=== PATIENT | male | born 1955 | race Caucasian/White ===

== ENCOUNTER → 2019-01-12 11:12 | Outpatient (CLI) | payer OTHER, SELFPAY ==
--- NOTE | 2019-01-12 11:23 | CT_ITS ---
PROCEDURE: CT ABDOMEN PELVIS WO/W CON CLINICAL INDICATION: PANCREATIC CANCER, ACUTE CHOLANGITIS Pancreatic cancer, acute cholangitis, abdominal distension COMPARISON: ERCP [place] ERCP from 07/30/2018 [facility] US abdomen complete from 07/30/2018 TECHNIQUE: IV Contrast: 75ML OPTIRAY 350 Oral Contrast 450ml Redicat Axial images obtained with sagittal and coronal reformats. All CT scans at the facility use one or more dose reduction, viz: automated exposure control, ma/kV adjustment per patient size (including targeted exams where dose is matched to indication, i.e. head), or iterative reconstruction technique. FINDINGS: Lower thorax: A 4 mm nodules present in the right middle lobe laterally and may be due to a granuloma. The liver is somewhat shrunken with irregular margins consistent with cirrhosis. A hyperdense nodules present in the right hepatic lobe anteriorly at 12 mm with at least 3 additional hyperdense smaller nodules in the right hepatic lobe. These are nonspecific. There is diffuse heterogeneous decreased attenuation within the liver mostly centrally and may be due to heterogeneous fatty liver infiltration. Cannot exclude the possibility of metastatic disease however this does not appear to be displacing vessels or bile ducts. A biliary stent is present. No biliary dilatation. Pneumobilia is present. A gallstone is also noted. There is a focal well-defined linear lucency through the posterior aspect of the spleen and may represent a fissure within the spleen. A laceration could have a similar appearance. Please correlate with clinical parameters. The adrenal glands are unremarkable. There are bilateral renal cyst. There is a 5 mm nonobstructing stone in the upper pole of the right kidney. No ureteral calculi. No hydronephrosis. There is moderate diffuse ascites. Soft tissue mass is present in the head of the pancreas at 3.6 by 4.2 cm. There is mild ductal dilatation of the body and tail the pancreas. Moderate amount of ascites is present in the pelvis. No intestinal obstruction or free air is evident. There is haziness of the peritoneal fat which may be related to the underlying ascites. No acute bony anomalies are evident. IMPRESSION: 1. 4 cm mass in the head of the pancreas consistent with pancreatic carcinoma 2. Cirrhosis with heterogeneous decreased density of the hepatic parenchyma. This is somewhat atypical and could be due to diffuse infiltrating neoplasm or hepatic steatosis. MRI without and with contrast with in and out of phase imaging may further distinguish between the 2. There is diffuse ascites. A biliary stent is present with pneumobilia 3. Right nephrolithiasis Dictated by: Montrell Rivera MD 01/12/2019 17:32 Electronically signed by Montrell Rivera MD in [place] 01/14/2019 06:18
[2019-01-12 11:34] LABS: Blood Urea Nitrogen 17 mg/dL (7-18); Creatinine,Serum 0.78 mg/dL (0.70-1.30); Estimated Glomerular Filt Rate 101 ml/min (>60); GFR (African American) 122 ML/MIN (>60)
== END ==
PROVIDERS: PCP Nurse Practitioner Family; Visit Provider Internal Medicine Infectious Disease
DX: C25.9 Malignant neoplasm of pancreas, unspecified (principal); K83.09 Other cholangitis
CPT/HCPCS: 36415; 74178; 82565; 84520; Q9967